=== PATIENT | female | born 1945 | race Caucasian/White ===

== ENCOUNTER → 2017-05-15 | Outpatient (CLI) | payer MEDICARE ==
--- NOTE | 2017-05-15 09:50 | RAD ---
Examination: Frontal view the pelvis with frog-leg view the right hip History: History of right hip pain Comparison: None available Findings: There is severe joint space loss identified in the right hip joint. Osseous demineralization limits evaluation. Moderate degenerative changes identified in the lower lumbar spine. Moderate degenerative changes left hip joint. Impression: Severe degenerative changes right hip joint.
== END | disposition home or self-care (01) ==
LOC: DXRADRC 07:55
PROVIDERS: ATTEND Physician Assistant Medical
DX: M16.11 Unilateral primary osteoarthritis, right hip (principal); M47.896 Other spondylosis, lumbar region
CPT/HCPCS: 73501

== ENCOUNTER → 2021-01-08 | Outpatient (CLI) | payer MEDICARE ==
--- NOTE | 2021-01-08 10:06 | RAD ---
EXAM: Lumbar spine, 5 views. HISTORY: Pain. COMPARISON: None. FINDINGS: 5 views of the lumbar spine are obtained. There is mild lumbar dextrocurvature. There is gr tanja 1 anterolisthesis of L3 on L4 and L5 on S1. There is degenerative endplate remodeling with disc s pace narrowing, osteophytosis and facet arthropathy at L3-S1. There is also minimal endplate remodeli ng at the lower thoracic and upper lumbar levels. There is a right hip arthroplasty. IMPRESSION: 1. Degenerative change primarily at L3-S1. 2. Grade 1 anterolisthesis of L3 on L4 and L5 on S1. Electronically signed by: Katharina Woods MD (01/08/2021 10:04 AM) [id number]
== END ==
LOC: RAD 09:41
PROVIDERS: ATTEND Physician Assistant Medical
DX: M47.817 Spondylosis without myelopathy or radiculopathy, lumbosacral region (principal); M48.07 Spinal stenosis, lumbosacral region; M25.78 Osteophyte, vertebrae
CPT/HCPCS: 72110